=== PATIENT | male | born 1995 | race Asian ===

== ENCOUNTER 2020-09-27 13:57 | Emergency (ER) | payer BC ==
[~2020-09-27] VITALS: Ht 167.6 cm; Wt 90.9 kg
[2020-09-27 14:07] VITALS: BP 140/84
--- NOTE | 2020-09-27 15:19 | RAD ---
EXAM: Left shoulder, 3 views. HISTORY: Pain. COMPARISON: None. FINDINGS: 3 views of the left shoulder obtained. There is no fracture, dislocation or subluxation. IMPRESSION: No acute osseous finding. Electronically signed by: Tisha Kent MD (09/27/2020 3:16 PM) [id number]
[2020-09-27] MEDS ORDERED: CYCL10TA2 PO (15:30)
[2020-09-27] MEDS ORDERED: METH4TAB2 PO (15:30)
[2020-09-27] MEDS ORDERED: NAPR-514 PO (15:30)
--- NOTE | 2020-09-27 15:30 | PHYS DOC ---
Past Medical History Past Medical History: No Pertinent History Past Surgical History: No Surgical History Smoking Status: Never Smoker Alcohol Use: None General Adult EDM: Chief Complaint: SHOULDER INJURY HPI: HPI: Patient is a 25 year old male who presents to the ED today complaining of mild intermittent chronic left shoulder pain worse while working at [employer] lifting heavy items. Patient denies any injuries. States the pain is sharp. States immobilization/not lifting anything relieves the pain. Requesting a note to be on FMLA for 2 weeks Review of Systems: Review of Systems: Constitutional: Denies fever or chills. [] Musculoskeletal: Reports left shoulder pain. Denies back pain Integument: Denies rash. [] Neurologic: Denies headache, focal weakness or sensory changes. [] Psychiatric: Denies depression or anxiety. [] Heart Score: C/O Chest Pain: N/A Risk Factors: Risk Factors: DM, Current or recent (<one month) smoker, HTN, HLP, family history of CAD, obesity. Risk Scores: Score 0 - 3: 2.5% MACE over next 6 weeks - Discharge Home Score 4 - 6: 20.3% MACE over next 6 weeks - Admit for Clinical Observation Score 7 - 10: 72.7% MACE over next 6 weeks - Early Invasive Strategies Allergies: Allergies: Allergies Coded Allergies Type Severity Reaction Last Updated Verified No Known Drug Allergies 09/27/20 No Physical Exam: PE: Constitutional: Well developed, well nourished, no acute distress, non-toxic appearance. [] Skin: Warm, dry, no erythema, no rash. [] Back: No tenderness, no CVA tenderness. [] Extremities: Left shoulder with no obvious deformity, no edema, no ecchymosis, well muscled man. Full range of motion to the left upper extremity especially around the shoulder. +2 left radial pulse. Adequate radial, medial, ulnar sensation to the left upper extremity. +2 left radial pulse. Cap refill less than 2 seconds to left fingers Neurologic: Alert and oriented X 3, normal motor function, normal sensory funct ion, no focal deficits noted. [] Psychologic: Affect normal, judgement normal, mood normal. [] Current Patient Data: Vital Signs: Vital Signs Date Time Temp Pulse Resp B/P (MAP) Pulse Ox O2 Delivery O2 Flow Rate FiO2 09/27/20 14:07 97.5 91 15 140/84 (102) 96 Room Air 97.5 EKG: EKG: [] Radiology/Procedures: Radiology/Procedures: []REASON: pain PROCEDURE: SHOULDER 2+V LEFT EXAM: Left shoulder, 3 views. HISTORY: Pain. COMPARISON: None. FINDINGS: 3 views of the left shoulder obtained. There is no fracture, dislocation or subluxation. IMPRESSION: No acute osseous finding. Electronically signed by: Tisha Kent MD (09/27/2020 3:16 PM) [id number] DICTATED and SIGNED BY: TISHA KENT MD DATE: 09/27/20 [id number] 0 Course & Med Decision Making: Course & Med Decision Making Pertinent Labs and Imaging studies reviewed. (See chart for details) This is a 35-year-old male patient presenting to the ED today with left shoulder pain for 5 months, no known injury but does heavy lifting at [employer] where he is employed. Left shoulder x-rays are negative, requesting FMLA for 2 weeks. Informed we are not able to do FMLA at the ED. He can follow-up with the PCP or orthopedic doctor. Dariana Disclaimer: Dragphani Disclaimer: This electronic medical record was generated, in whole or in part, using a voice recognition dictation system. Departure Departure Impression: Primary Impression: Chronic left shoulder pain Disposition: 01 HOME / SELF CARE / HOMELESS Condition: STABLE Referrals: NO PCP (PCP) ALE PEREZ DO follow up in 1-2 weeks Patient Instructions: Shoulder Pain, [id number] Additional Instructions: You were evaluated in the emergency room for left shoulder pain, your left shoulder x-rays are negative for any acute findings. Please follow-up with the provided orthopedic doctor or your own doctor in 1 to 2 weeks. We do not do FMLA paperwork in the emergency room Scripts Cyclobenzaprine Hcl (CYCLOBENZAPRINE HCL) 10 Mg Tablet 1 TAB PO TID, #30 TAB Prov: ANISH [employer]S [employer]IRS[employer]ING INSPECTOR 09/27/20 Naproxen (NAPROXEN) 500 Mg Tablet 1 TAB PO BID for pain, #20 TAB 0 Refills Prov: ANISH [employer]S [employer] INSPECTOR 09/27/20 Methylprednisolone (MEDROL) 4 Mg Tab.ds.pk 1 PKG PO UD, #1 PKG Prov: ANISH SMALLS [employer]IRS[employer] INSPECTOR 09/27/20 ANISH [employer]S [employer] INSPECTOR September 27, 2020 15:30
== END 2020-09-27 15:37 | disposition home or self-care (01) ==
LOC: ER 13:57
DX: G89.29 Other chronic pain (principal); M25.512 Pain in left shoulder
CPT/HCPCS: 73030; 99283